=== PATIENT | male | born 1985 | race Caucasian/White ===

== ENCOUNTER 2017-09-23 01:47 | Emergency (ER) | payer OTHER, SELFPAY ==
[2017-09-23 02:09] VITALS: BMI 28.5
--- NOTE | 2017-09-23 02:11 | ED.EYEPROB ---
HPI - Eye Problem General Chief complaint: Eye Problems Stated complaint: thinks has pink eye left eye pink and swollen Time Seen by Provider: 09/23/17 01:55 Source: patient Mode of arrival: ambulatory Limitations: no limitations History of Present Illness HPI Narrative: 32-year-old male presents to the emergency department with a chief complaint of left eye drainage and irritation over the past 2 days. He complains of matting. He says he recently had an upper respiratory infection. He denies exposure to conjunctivitis. He denies any injury or blurred vision chief complaint: eye redness Onset (ago): day(s) Onset description: gradual Duration: constant Location: left eye Eye Symptoms: burning, redness, itching and discharge Mechanism: none Severity: mild Context: recent URI Associated symptoms: none Treatments Prior to Arrival: none Related Data Previous Rx's Medication Instructions Recorded prednisone 20 mg PO Q DAY #12 tab 07/30/16 Allergies Allergy/AdvReac Type Severity Reaction Status Date / Time No Known Drug Allergies Allergy Verified 09/23/17 02:17 Review of Systems Review of Systems All systems reviewed & are unremarkable except as noted in HPI and below Constitutional Denies chills, Denies fever(s), Denies lethargy and Denies weakness Eyes Reports as per HPI, Denies change in vision, Reports eye discharge, Reports irritation and Denies loss of vision ENT Ears, Nose, Mouth, and Throat: Denies change in voice, Denies neck pain and Denies sore throat Cardiovascular Denies chest pain, Denies irregular heart rhythm, Denies lightheadedness, Denies palpitations, Denies dyspnea, Denies dyspnea on exertion and Denies orthopnea Respiratory Denies cough, Denies dyspnea, Denies dyspnea on exertion and Denies wheezing Gastrointestinal Gastrointestinal: Denies abdominal pain, Denies change in bowel habits, Denies diarrhea, Denies nausea and Denies vomiting Genitourinary Denies hematuria, Denies flank pain, Denies urinary incontinence and Denies urinary urgency Musculoskeletal Denies neck pain Integumentary/Breasts Denies pruritus, Denies erythema, Denies rash and Denies wounds Neurologic Denies confusion, Denies loss of vision and Denies weakness Psychiatric Denies anxiety, Denies confusion, Denies depression, Denies homicidal ideation and Denies suicidal ideation Endocrine Denies palpitations Hematologic/Lymphatic Denies easy bruising Allergic/Immunologic Denies wheezing PFSH Social History Smoking Status: Current every day smoker Exam Const General: cooperative and well developed Nutritional Appearance: well nourished Orientation: alert, awake, oriented x3 and not confused [facility] Head: normocephalic and atraumatic Ears: external ears normal and TM's normal bilaterally Nose: external nose normal and No nasal discharge Face and sinus: sinuses nontender, face symmetric, no sinus tenderness and No dry mucous membranes Mouth: oral mucosae normal and moist mucous membranes Teeth and gingiva: dentition normal Throat: tonsils normal and uvula midline Eyes Visual Chappell: normal visual chappell by confrontation Eyelids: eyelids normal Conjunctivae: conjunctival abnormality left conjunctival injection and discharge Sclera: scleral abnormality left scleral exudate and scleral injection Pupils: PERRL Resp Effort & Inspection: normal respiratory effort, able to speak in complete sentences, no respiratory distress and no use of accessory muscles Auscultation: clear to auscultation bilaterally, no rales, no rhonchi and no wheezes GI Inspection: non-distended Palpation: soft, no hepatosplenomegaly, No guarding, No pulsatile mass and No tender Auscultation: normal bowel sounds Course Orders Ordered: Discontinued Medications Sulfacetamide (Bleph-10 Prepack) 1 bottle MISC SEEINSTR ONE Stop: 09/23/17 02:25 Last Admin: 09/23/17 02:31 Dose: 1 bottle Discharge Plan Departure Patient Disposition: Home, Self-Care Clinical Impression: Conjunctivitis of left eye Instructions: Conjunctivitis Activity Restrictions/Additional Instructions: *You have been diagnosed with [ acute left eye conjunctivitis ] *What to do: *Take medications as directed *Follow up with your primary care provider in 2-3 days, call for appointment *Return to ER if you should have any new, worsening or concerning symptoms Prescriptions: No Action prednisone 20 MG tablet 20 mg PO Q DAY Qty: 12 RF: 0 Stand Alone Forms: Work/School Restrictions
[2017-09-23] MEDS: SULFACETAMIDE 10% OPHTH PREPACK 1 BOTTLE MISC (02:31)
== END 2017-09-23 02:39 | disposition home or self-care (01) ==
LOC: ED 02:45
PROVIDERS: Emergency Provider Emergency Medicine
DX: H10.9 Unspecified conjunctivitis (principal)
CPT/HCPCS: 99282

== ENCOUNTER 2017-09-24 14:59 | Emergency (ER) | payer OTHER, SELFPAY ==
[2017-09-24 15:02] VITALS: BP 140/88; PULSE 73; RESP 14; TEMP 36.8; O2SAT 96; BMI 28.5
--- NOTE | 2017-09-24 15:54 | ED_ITS ---
HPI - Eye Problem General Chief complaint: Eye Problems Stated complaint: LEFT EYE REDNESS AND SWELLING Time Seen by Provider: 09/24/17 15:32 Source: patient Mode of arrival: ambulatory Limitations: no limitations History of Present Illness HPI Narrative: 32-year-old male here for re-evaluation of left eye conjunctivitis. Patient was seen here in the emergency department just over 24 hr ago was diagnosed with conjunctivitis in his left eye. Was sent home on eyedrops. He states that he has use the eyedrops for approximately 24 hr and he feels like his symptoms have been worsening. No vision changes. Does have some blurry vision but he feels that that is because the tearing in the eye. Does have some change in redness around his eye. Does not wear glasses or contacts. Has not had any prior eye surgeries. Related Data Previous Rx's Medication Instructions Recorded prednisone 20 mg PO Q DAY #12 tab 07/30/16 erythromycin 0.5 inch EYE-LEFT TID 5 Days #1 09/24/17 gram Allergies Allergy/AdvReac Type Severity Reaction Status Date / Time No Known Drug Allergies Allergy Verified 09/24/17 15:02 Review of Systems Constitutional Denies chills, Denies fatigue, Denies fever(s) and Denies headache(s) Eyes Comments: No right eye complaints Left eye red, draining, irritated, itching, blurry vision, discharge ENT Ears, Nose, Mouth, and Throat: Denies vertigo, Denies dizziness, Denies dry mouth, Denies headache(s), Denies mouth lesions, Denies nasal congestion, Denies nasal discharge, Denies neck pain, Denies sinus pain, Denies sinus pressure, Denies sore throat, Denies throat swelling and Denies tongue swelling Cardiovascular Denies dyspnea Respiratory Denies dyspnea Gastrointestinal Gastrointestinal: Denies nausea and Denies vomiting Musculoskeletal Denies arthralgias, Denies joint swelling and Denies neck pain Integumentary/Breasts Comments: Redness around his left eye Neurologic Denies vertigo, Denies dizziness and Denies headache(s) Endocrine Denies fatigue Hematologic/Lymphatic Denies easy bleeding and Denies easy bruising Allergic/Immunologic Denies throat swelling and Denies tongue swelling PFS Social History Smoking Status: Current every day smoker Exam Initial Vital Signs Initial Vital Signs: Vital Signs Temperature 98.3 F 09/24/17 15:02 Pulse Rate 73 09/24/17 15:02 Respiratory Rate 14 09/24/17 15:02 Blood Pressure 140/88 H 09/24/17 15:02 Pulse Oximetry 96 09/24/17 15:02 Const General: cooperative, healthy appearing, comfortable, well developed, well groomed and No acute distress Orientation: alert and oriented x3 HENMT Head: normal to inspection, normocephalic and atraumatic Ears: hearing grossly normal bilaterally Nose: external nose normal Face and sinus: normal facial exam Mouth: oral mucosae normal and moist mucous membranes Eyes Other: Right eye unremarkable Left eye does not have any uptake with fluorescein stain, no foreign body noted , does have a clear drainage, sclera is injected with chemosis, pupil equal round reactive to light, extraocular muscles intact, does have redness on the upper and lower eyelid but does not extend past this area, Resp Effort & Inspection: normal respiratory effort Skin Other: Redness on the left upper lower eyelid not extending past this area Neuro General: alert, awake and oriented x3 Extrem General: normal to inspection Psych Appearance: grossly normal and well kempt Course Vital Signs - 8 hr 09/24/17 15:02 Temperature 98.3 F Pulse Rate 73 Respiratory Rate 14 Blood Pressure 140/88 H Pulse Oximetry 96 MDM - Eye Problem MDM Narrative Medical decision making narrative: No findings on consistent exam consistent with foreign body or corneal abrasion. Considered iritis however patient does not have any trauma and has no consensual photophobia. Redness around his eye is localized to the eye. Is not consistent with preseptal/orbital cellulitis. Will switch his antibiotics to erythromycin ointment. Patient states that he prefers an ointment over a drop. He does state that the 1st couple times he use the drops he did feel a ?burning? sensation in his eye. Will hold on oral antibiotics for now. Patient was given return precautions. He expressed understanding and agreement with plan Discharge Plan Departure Patient Disposition: Home, Self-Care Clinical Impression: Conjunctivitis Discharge Date/Time: 09/24/17 16:05 Interventions: ED Discharge Assessment Last Done: 09/24/17 16:05 Instructions: Conjunctivitis Activity Restrictions/Additional Instructions: Recommend that you stop the antibiotic drops you were given on your last visit and start the appointment that you were given today. Return to the emergency department for any new or worsening symptoms. Recommend that you practice good hand washing and avoid contact with others. Prescriptions: New erythromycin 5 mg/gram (0.5 %) ointment 0.5 inch EYE-LEFT TID 5 Days Qty: 1 RF: 0 No Action prednisone 20 MG tablet 20 mg PO Q DAY Qty: 12 RF: 0
[2017-09-24 16:03] VITALS: BP 132/89; PULSE 76; RESP 16; O2SAT 96
== END 2017-09-24 16:05 | disposition home or self-care (01) ==
PROVIDERS: Emergency Provider Emergency Medicine
DX: H10.9 Unspecified conjunctivitis (principal)
CPT/HCPCS: 99282

== ENCOUNTER → 2021-11-02 09:47 | Outpatient (CLI) | payer SELFPAY ==
--- NOTE | 2021-11-02 09:56 | DI.RAD.S_ITS ---
PROCEDURE: XR LUMBAR SPINE 2-3V INDICATIONS: fall TECHNIQUE: 3 views of the lumbar spine were acquired. COMPARISON: None. FINDINGS: Bones: There are 6 [id number] lumbar vertebral bodies. No suspicious bony lesions. No compression deformities. Mild joint space narrowing is present at the lumbosacral junction. There is likely a small osteophyte at the superior endplate of the 5th [id number] lumbar vertebral body. No other significant degenerative change. Soft tissues: Overlying bowel gas pattern is normal. No suspicious soft tissue calcifications. IMPRESSION: No acute compression deformities. Mild degenerative change. Dictated by: Ava Baird M.D. on 11/02/2021 at 12:22 Approved by: Ava Baird M.D. on 11/02/2021 at 12:24
== END ==
LOC: RAD 09:53
PROVIDERS: Referring Provider Student in an Organized Health Care Education/Training Program; Visit Provider Student in an Organized Health Care Education/Training Program
DX: S39.92XA Unspecified injury of lower back, initial encounter (principal); X58.XXXA Exposure to other specified factors, initial encounter
CPT/HCPCS: 72100